=== PATIENT | male | born 1950 | race Caucasian/White ===

== ENCOUNTER 2018-07-21 14:40 | Inpatient (IN) ==
--- NOTE | 2018-07-21 15:58 | Emergency Department Note ---
Disposition Clinical Impression: Focal neurological deficit, onset greater than 24 hours Disposition: Admitted As Inpatient Condition: Fair Time of Disposition: 18:36 General Adult HPI - General Chief complaint: ED Neuro Symptoms/Deficit Stated complaint: Neuro symptoms Time Seen by Provider: 07/21/18 14:46 - History of Present Illness HPI Narrative: Jonathan Kulkarni is a 67 yr old male presenting with neuro deficit. He has a past medical history of Beebe's esophagus, GAVE syndrome, CKD, GERD, diabetes mellitus with peripheral neuropathy, hypertension, hyperlipidemia, pancreatitis. The patient had an upper respiratory infection 14 days ago, and then 10 days ago he woke up with asymmetrical right sided facial weakness and drooping and sharp, shooting facial pain, right eye burning, periauricular pain, and right sided neck pain. He was seen at [facility] who did an MRI, blood work and he was diagnosed with Cabrera's palsy. He was treated with acyclovir, prednisone, and percocet, all of which he has completed. Since that time, the right sided sharp shooting pain has continued and is not alleviated by gabapentin that he takes for peripheral neuropathy. He also admits to mild dysphagia, headache, dysequilibrium and had one episode of right leg weakness with fall. He states that the leg weakness has somewhat resolved. He denies loss of consciousness, vision change, hearing change, change in taste, weakness besides right leg, change in speech, change in sensation, chest pain, shortness of breath, nausea, vomiting, fever, chills, abdominal pain, change in bowel or bladder habits or rash. Pain Scale: 8 - Related Data Home Medications Medication Instructions Recorded Confirmed RX: Albuterol Sulfate [Albuterol 1 puff IH QID 01/01/18 07/21/18 Inhaler] RX: Allopurinol [Zyloprim] 300 mg PO DAILY 01/01/18 07/21/18 RX: Gabapentin [Neurontin] 900 mg PO BID 01/01/18 07/21/18 RX: Insulin ASPART [Novolog 36 unit SQ TID 01/01/18 07/21/18 Flexpen] RX: Insulin Glargine [Lantus] 100 unit BID 01/01/18 07/21/18 RX: Lisinopril [Zestril] 20 mg PO DAILY 01/01/18 07/21/18 RX: Rosuvastatin Calcium [Crestor] 20 mg PO DAILY 01/01/18 07/21/18 RX: Sertraline [Zoloft] 200 mg PO DAILY 01/01/18 07/21/18 RX: Spironolactone [Aldactone] 12.5 mg PO DAILY 01/01/18 07/21/18 RX: Trazodone HCl 100 mg PO HS 01/01/18 07/21/18 Aspirin [Adult Aspirin] 81 mg PO DAILY 01/29/18 07/21/18 Metoprolol [Lopressor] 75 mg PO BID 01/29/18 07/21/18 Previous Rx's Medication Instructions Recorded RX: Pantoprazole Sodium [Protonix] 40 mg PO DAILY #15 tablet. 01/05/18 Allergies Allergy/AdvReac Type Severity Reaction Status Date / Time Penicillins Allergy Swelling Verified 01/29/18 11:40 of Lip/Tongue/Throat atorvastatin AdvReac Cough Verified 01/29/18 11:40 ibuprofen AdvReac Itching Verified 01/29/18 11:40 Constitutional: Reports: weakness. Denies: fever, chills Eyes: Reports: eye pain. Denies: vision change ENT ED: Reports: ear pain, dysphagia. Denies: hearing loss Cardiovascular: Denies: chest pain, palpitations, dyspnea on exertion, edema, syncope Respiratory: Denies: cough, dyspnea, wheezes Gastrointestinal: Denies: abdominal pain, nausea, vomiting, constipation Genitourinary: Denies: urgency, dysuria, frequency Musculoskeletal: Reports: neck pain. Denies: back pain, joint swelling, arthralgia Integumentary: Denies: rash, lesions Neurological: Reports: headache, weakness, paresthesias. Denies: numbness, abnormal gait, vertigo Psychiatric: Denies: anxiety, depression Endocrine: Denies: fatigue, heat or cold intolerance Hematological/Lymphatic: Denies: easy bleeding, easy bruising Allergic/Immunologic: Denies: facial swelling, urticaria Past Medical History - Past Medical History Medical history: Reports: COPD, diabetes, GERD, hyperlipidemia, hypertension, other (Beebe's esophagus, GAVE syndrome, pancreatitis) Surgical history: Reports: cholecystectomy, other Psychiatric history: Reports: no psych history - Social History Smoking Status: Former smoker Smokeless Tobacco Status: No Alcohol use: Reports: none, heavy Drug use: Reports: none Physical Exam Gen.: Vitals noted. No acute distress. AAOx3, resting comfortably in bed. HEENT: PERRL/EOMI, oropharynx clear, assymetrical soft palatte, lower on right side, Normocephalic, atraumatic, MMM Neck: Supple. No adenopathy. No thyroid nodules. Trachea midline. Tenderness to touch over right lateral neck Cardiac: RRR, no murmur, +S1/S2, No BLE edema Pulmonary: CTA bilaterally, no wheezes, rales or rhonchi, equal chest expansion, unlabored breathing Abdomen: soft, nontender, BS noted, no guarding, no palpable HSM Back: Nontender throughout. Skin: warm and dry, no visible lesions. MSK: ROM intact, no joint swelling noted, non tender calf or clubbing, dupuytren's contracture of left 5th finger Neuro: A&Ox3, moves all extremities, PERRLA/EOMI, horizontal gaze intact, vision intact, right eyebrow weakness, right eye drooping, right mouth drooping. Sensation over the face is equal, however light touch causes pain over right cheek as well as periauricular region, mastoid region, and down the right side of neck. Uvula is midline, however right soft palatte is lower than left side. Upper and lower extremity motor function is 5/5 and equal bilaterally. Sensation on left arm is decreased from right arm. Sensation of lower extremi ties is equal. DTR intact and symmetrical. No pronator drift. Finger to nose and heel to rossi intact. No extinction or neglect. Normal gait, able to toe walk and heel walk. NIHSS stroke score of 4. - General General appearance: alert, in no apparent distress Course Course Narrative: Patient was seen and examined at bedside. History of present illness was elucidated, patient's main concern is neuropathic pain over face around ear and shooting down neck. While the patient does have typical cabrera's palsy presen tation of right eyebrow weakness, right eye drooping and right-sided mouth drooping with neuropathic pain on right side of face, around right ear and on right side of neck, there are several concerning findings in the history and on exam. Of concern is the history of disequilibrium, right-sided leg weakness 2 days ago resulting in fall, difficulty swallowing and soft palate asymmetry. NIHSS stroke score of 4. This could be a variant of cabrera's palsy but there is concern for subacute stroke. We will do a CBC, BMP, EKG, chest x-ray to assess for possible aspiration, and noncontrast head CT for further assessment. Patient is hypertensive, however due to concern for subacute stroke we will a wait imaging. He will be given 1 dose of Percocet to help alleviate his neuropathic pain. 5:31 Patient states that neuropathic pain of face, around here, and down neck is somewhat improved after Percocet CT head/brain without contrast revealed no acute intracranial abnormality, diffuse atrophic changes with findings suggesting chronic microvascular ischemia present. Chest x-ray revealed no acute cardiopulmonary process. EKG is normal sinus rhythm, borderline left axis, normal intervals, no ST segment elevation or depression, nonspecific T-wave abnormalities present. Labs significant for thrombocytopenia, platelets 95. Review of chart shows one episode of thrombocytopenia in 12/2017. Troponins WNL. Cr 1.43, BUN 23 and GFR 49, review of previous labs suggests CKD stage 3. Neurology has been consulted, patient will need MRI for further assess for subacute stroke. Patient will be admitted to hospitalist service. Vital Signs Temperature 97.4 F L 07/21/18 14:42 Pulse Rate 85 07/21/18 14:42 Respiratory Rate 16 07/21/18 14:42 Blood Pressure 196/90 07/21/18 14:42 O2 Sat by Pulse Oximetry 97 07/21/18 14:42 Temperature 97.4 F L 07/21/18 14:52 Pulse Rate 85 07/21/18 14:52 Respiratory Rate 16 07/21/18 14:52 Blood Pressure 196/90 07/21/18 14:52 O2 Sat by Pulse Oximetry 97 07/21/18 14:52 Oxygen Delivery Oxygen Delivery Room Air Medical Decision Making - Medical Records Medical records reviewed: Yes I reviewed the patient's medical records. - Lab Data Lab results reviewed: Yes I reviewed the patient's lab results. Result diagrams: 07/22/18 04:47 07/22/18 04:47 Lab Results 07/21/18 07/21/18 Range/Units 16:37 17:22 WBC 4.4 (4.3-11.1) K/mcL RBC 4.63 (4.19-5.50) M/mcL Hgb 13.0 (12.9-16.9) g/dL Hct 41.5 (37.5-50.1) % MCV 89.6 (83.0-100.0) fL MCH 28.1 (28.0-33.3) pg MCHC 31.3 L (31.6-35.5) g/dL RDW 19.3 H (11.5-14.5) % Plt Count 95 L (140-400) K/mcL MPV TNP Immature Gran % 0.2 (0-4) % Seg Neutrophils % 66.4 % Lymphocytes % 25.1 % Monocytes % 5.5 % Eosinophils % 2.1 % Basophils % 0.7 % Neutrophils # 2.9 (1.6-8.9) K/mcL Lymphocytes # 1.1 (0.6-4.6) K/mcL Monocytes # 0.2 (0.0-1.3) K/mcL Eosinophils # 0.1 (0.0-0.6) K/mcL Basophils # 0.0 (0.0-0.2) K/mcL Immature Plt Fraction 6.4 H (1.1-6.1) % Sodium 139 (136-145) mEq/L Potassium 4.5 (3.5-5.1) mEq/L Chloride 103 (98-107) mEq/L Carbon Dioxide 31 H (23-29) mEq/L BUN 23 (8-23) mg/dL Creatinine 1.43 H (0.70-1.30) mg/dL Est GFR ( Amer) 60 (> 60) Est GFR (Non-Af Amer) 49 L (> 60) BUN/Creatinine Ratio 16 (6-26) Glucose 167 H (70-105) mg/dL Calculated Osmolality 295 (280-300) Calcium 9.8 (8.6-10.3) mg/dL Troponin I < 0.03 (< 0.04) ng/mL - Radiology Data Radiology results reviewed: Yes I reviewed the patient's radiology results. Chest X-Ray 07/21/18 16:38 IMPRESSION: No acute cardiopulmonary process identified. D/ / Garett Raman MD / Garett Raman MD Interpreting Provider: Garett Raman MD Head CT 07/21/18 16:38 IMPRESSION: No acute intracranial abnormality. Diffuse atrophic changes with findings suggesting chronic microvascular ischemia D/ / Kiet Mosquera MD / Kiet Mosquera MD Interpreting Provider: Kiet Mosquera MD - EKG Data EKG #1 EKG results narrative: Normal sinus rhythm, heart rate 76 Borderline left axis deviation Normal intervals RRR 780 VA 164 QT [address] segment elevation or depression Nonspecific T-wave abnormalities in lateral leads No previous EKG to compare Attestation Statement - Attestation Attestation: Resident Attestation: I examined this patient and my medical decision making was reviewed with the Resident Physician. I agree with the documented findings, disposition and treatment plan as described except to the extent set forth below. We independently had [id number] contact with the patient. Patient presenting for evaluation of facial droop as well as associated pain. Patient was recently diagnosed with Cabrera's palsy at outside facility. Patient has been having increasing amounts of vertigo as well as right-sided weakness with the right leg giving out and feelings of imbalance. The patient on exam has pain to the right side of his face with associated facial droop including the forehead. The patient also has a a symmetric palate and complains of difficulty with swallowing. Given the patient's multiple neurologic complaints patient will undergo further evaluation for possible CVA.
[2018-07-21] MEDS ORDERED: *HR* OxyCODONE/APAP 5/325 TABLET PO ONE (16:54)
[2018-07-21 17:41] LABS: Lymphocytes # 1.1 K/mcL (0.6-4.6); Lymphocytes % 25.1 %; Mean Corpuscular Hemoglobin 28.1 pg (28.0-33.3); Neutrophils # 2.9 K/mcL (1.6-8.9); Red Cell Distribution Width 19.3 % (11.5-14.5); Segmented Neutrophils % 66.4 %
[2018-07-21 17:43] LABS: Basophils % 0.7 %; Eosinophils # 0.1 K/mcL (0.0-0.6); Eosinophils % 2.1 %; Hematocrit 41.5 % (37.5-50.1); Immature Granulocytes % 0.2 % (0-4); Immature Platelets 6.4 % (1.1-6.1); Mean Corpuscular HGB Conc 31.3 g/dL (31.6-35.5); Mean Corpuscular Volume 89.6 fL (83.0-100.0); Monocytes # 0.2 K/mcL (0.0-1.3); Monocytes % 5.5 %; Red Blood Count 4.63 M/mcL (4.19-5.50)
[2018-07-21 17:45] LABS: Platelet Count 95 K/mcL (140-400)
[2018-07-21 18:07] LABS: BUN/Creatinine Ratio 16 (6-26); Blood Urea Nitrogen 23 mg/dL (8-23); Calcium 9.8 mg/dL (8.6-10.3); Carbon Dioxide 31 mEq/L (23-29); Chloride 103 mEq/L (98-107); Glucose 167 mg/dL (70-105); Osmolality,Calculated 295 (280-300); Potassium 4.5 mEq/L (3.5-5.1); Sodium 139 mEq/L (136-145); eGFR For Non-African Americans 49 (> 60)
[2018-07-21 18:14] LABS: Troponin I < 0.03 ng/mL (< 0.04)
[2018-07-21] MEDS ORDERED: 0.9 % Sodium Chloride 1,000 ML IVC ONE (18:18)
--- NOTE | 2018-07-21 21:30 | Internal Med History&Physical ---
<Sergo Estrada W - Last Filed: 07/22/18 00:04> Date of Encounter: 07/22/18 Time of Encounter: 21:24 Internal Medicine - H&P: HPI Chief complaint: R sided facial pain Admitted From: Emergency Dept Plans for Post Hospital Care: Home History of present illness: Mr. Kulkarni is a 67 year old male presents with Cabrera's palsy hand associated right- sided facial pain. Patient has a past medical history of Beebe's esophagus, gave syndrome, CDK, GERD, diabetes mellitus with peripheral neuropathy, hypertension, hyperlipidemia, pancreatitis. Patient states that 14 days ago he had a "nasty" chest cold. Approximately 10 days ago patient noted some right- sided facial drooping and weakness. Patient states he woke up and one was unable to lift his right lip and completely elevate his right eye, or completely close his right eye on its own. States when he would breath deeply he felt like his nostril would drop and he was unable to hold up to take breath. 10 days ago patient went into [facility] where he was diagnosed with Cabrera's palsy. An MRI was done at that time and according to patient report he states that there was no abnormalities and no signs of a stroke. He was treated with acyclovir prednisone Percocet. He states that these did not help him. He is no longer taking any of these except for the Percocet. Patient states that the facial drooping has remained the same over the 10 days. Patient states he has had some slight lip swelling over the past few days. Patient has also had right leg weakness. He states this past Saturday his leg gave out and he fell. He did not his head. was able to get up on his own. Patient states his right leg still feels slightly weak, however, does not given out on him anymore. Patient came into the ED today because he had a biggest complaint of shooting right- sided facial pain. Takes place below his ear near his jaw on the right side. They can shoot up to the back of his neck or to his forehead. Patient has some relief if he presses on the area. Minor relief with aspirin or Percocet. Gabapentin does not help. Nothing makes it worse. Along with these shooting pains that are intense he does have a mild dull headache on the right side of his head. Patient states he has difficulty swallowing. Is able to tolerate solids and liquids. Patient admits to diarrhea for the past 3 days. Patient also states he has had abdominal pain however this is chronic for him. Patient denies any chest pain, shortness of breath that is above his baseline with a history of COPD, denies any change in bladder habits, denies any decreased sensation, denies confusion, denies rash, denies vision change. Past Med Surg Social Fam HX - Past Medical History Medical history: COPD, diabetes, GERD, hyperlipidemia, hypertension, other (Beebe's esophagus, GAVE syndrome, pancreatitis) Additional medical history: barretts esophagus. anemia. erectile dysfunction. gastric antral vascular ectasia (GAVE syndrome) Psychiatric history: no psych history - Past Surgical History Surgical History: cholecystectomy, other Additional surgical history: right hand operation. pancreatic stent - Social History Smoking Status: Former smoker Smokeless Tobacco Status: No Alcohol use: none, heavy Drug use: none - Family History Mother Living Status: Hx Family Cardiac Disorders: Yes (CAD) Brother Living Status: Hx Family Respiratory Disorders: Yes (condition unknown to brother) Hx Family GI Disorders: Yes (GI bleed) Father Hx Family Cardiac Disorders: Yes (Patient believes father had heart failure) Internal Medicine - H&P: Meds Albuterol Sulfate [Albuterol Inhaler] 1 puff IH QID 01/01/18 [History] Allopurinol [Zyloprim] 300 mg PO DAILY 01/01/18 [History] Gabapentin [Neurontin] 900 mg PO BID 01/01/18 [History] Insulin ASPART [Novolog Flexpen] 36 unit SQ TID 01/01/18 [History] Insulin Glargine [Lantus] 100 unit BID 01/01/18 [History] Lisinopril [Zestril] 20 mg PO DAILY 01/01/18 [History] Rosuvastatin Calcium [Crestor] 20 mg PO DAILY 01/01/18 [History] Sertraline [Zoloft] 200 mg PO DAILY 01/01/18 [History] Spironolactone [Aldactone] 12.5 mg PO DAILY 01/01/18 [History] Trazodone HCl 100 mg PO HS 01/01/18 [History] Pantoprazole Sodium [Protonix] 40 mg PO DAILY #15 tablet. 01/05/18 [Rx] Aspirin [Adult Aspirin] 81 mg PO DAILY 01/29/18 [History] Metoprolol [Lopressor] 75 mg PO BID 01/29/18 [History] Allergy/AdvReac Type Severity Reaction Status Date / Time Penicillins Allergy Swelling Verified 01/29/18 11:40 of Lip/Tongue/Throat atorvastatin AdvReac Cough Verified 01/29/18 11:40 ibuprofen AdvReac Itching Verified 01/29/18 11:40 All Systems PM: A 10-system review of systems was performed and is negative for pertinent findings except as documented above in the HPI. - Constitutional Constitutional: as per HPI - EENT Eyes: as per HPI Ears: as per HPI - Cardiovascular Cardiovascular ROS IM: as per HPI - Respiratory Respiratory: as per HPI - Gastrointestinal Gastrointestinal: as per HPI - Genitourinary Genitourinary ROS male: as per HPI - Musculoskeletal Musculoskeletal ROS IM: as per HPI - Integumentary Integumentary IM: as per HPI - Neurological Neurological ROS: as per HPI - Psychiatric Psychiatric: no confusion - Constitutional Vitals: Temp Pulse Resp BP Pulse Ox 97.4 F L 85 20 169/82 97 07/21/18 14:52 07/21/18 14:52 07/21/18 21:01 07/21/18 21:01 07/21/18 14:52 General appearance: Present: A&O X 3, pleasant Exam: as above - Head Head exam: Present: atraumatic, normocephalic Additional comments: Tenderness to palpation plan mandibular angle on the right side - Eye Eye exam: Present: EOMI. Absent: nystagmus, periorbital swelling, periorbital tenderness Additional comments: Ptosis of the right eye. Difficulty closing right eye - ENT ENT exam: Present: mucous membranes moist Additional comments: Right-sided soft, lower than the left side - Respiratory Respiratory exam: Present: CTAB. Absent: prolonged expiratory phase, rales, respiratory distress, rhonchi, wheezes - Cardiovascular Cardiovascular exam: Present: RRR, +S1, +S2. Absent: bradycardia, diastolic murmur, irregular rhythm, +S3, +S4, systolic murmur - GI/Abdominal GI/Abdominal exam: Present: normal bowel sounds, soft, tenderness (Diffuse). Absent: bruit, distended, firm, guarding - Expanded Neurological Exam Patient oriented to: Present: person, place, time Speech: Present: fluid speech Cranial Nerves: EOM's intact PM: Normal, nystagmus PM: Normal, tongue deviation PM: Normal Cerebellar function: finger to nose: Normal, Romberg: Normal Upper motor neuron: pronator drift: Normal, sensory extinction: Normal Sensory exam: lower extremity light touch: Normal, upper extremity light touch: Normal Neuro motor strength exam: LUE: 5, RUE: 5, LLE: 5, RLE: 5 DTR: bicep (L): 2+, bicep (R): 2+, patellar (L): 2+, patellar (R): 2+, tricep (L): 2+, tricep (R): 2+ Coma Scale Eye Opening: Spontaneous Coma Scale Motor Response: Obeys Commands Coma Scale Verbal Response: Oriented Coma Scale Total: 15 - Psychiatric Psychiatric exam: Present: normal affect, normal mood - Skin Skin exam: Present: dry, intact, warm Internal Med - H&P Results - Labs CBC & Chem 7: 07/21/18 16:37 07/21/18 17:22 Labs: Short CBC 07/21/18 Range/Units 16:37 WBC 4.4 (4.3-11.1) K/mcL Hgb 13.0 (12.9-16.9) g/dL Hct 41.5 (37.5-50.1) % Plt Count 95 L (140-400) K/mcL Neutrophils # 2.9 (1.6-8.9) K/mcL BMP 07/21/18 17:22 Sodium 139 Potassium 4.5 Chloride 103 Carbon Dioxide 31 H BUN 23 Creatinine 1.43 H Glucose 167 H Calcium 9.8 Cardiac Enzymes 07/21/18 Range/Units 17:22 Troponin I < 0.03 (< 0.04) ng/mL - Impressions ITS Impressions Chest X-Ray 07/21/18 16:38 IMPRESSION: No acute cardiopulmonary process identified. D/ / Garett Raman MD / Garett Raman MD Interpreting Provider: Garett Raman MD Head CT 07/21/18 16:38 IMPRESSION: No acute intracranial abnormality. Diffuse atrophic changes with findings suggesting chronic microvascular ischemia D/ / Kiet Mosquera MD / Kiet Mosquera MD Interpreting Provider: Kiet Mosquera MD - Assessment and plan (1) Facial paralysis/Elgin palsy Current Visit: Yes Status: Acute Assessment and plan: Likely from respiratory illness 14 days ago. Significant right-sided facial drooping and weakness for 10 days Diagnosed by the facility 10 days ago. At the time MRI was done per patient there is no acute abnormalities Patient has completed a course of acyclovir, prednisone, and Percocet has not s een any resolutions of his symptoms Concern patient did have some right-sided leg weakness. On Saturday did cause him to fall. Concern for CVA/TIA. NIHSS score of 4 Patient admits to some mild dysphasia. However he can tolerate solids and liquids. Plan: Neuro consultation, Appreciate recommendations PT/OT consultation, appreciate recs Consent consider speech therapy consult if patient has continued dysphagia MRI, carotid ultrasound, echo, lipids, A1c, CBC, BMP Pain control (2) Lower extremity weakness Current Visit: Yes Status: Acute Assessment and plan: as above Qualifiers: Laterality: right Qualified Code(s): R29.898 - Other symptoms and signs involving the musculoskeletal system (3) Facial neuralgia Current Visit: Yes Status: Acute Assessment and plan: Patient having shooting facial pain from the right side Patient has tried Percocet and aspirin for pain control. These might help but only mildly Pain control Plan as above (4) [id number] kidney injury Current Visit: Yes Status: Acute Assessment and plan: History of chronic kidney disease Creatinine 1.43 GFR 49 Unknown etiology at this time 1 L bolus given in ED. At this time is adequate. Follow-up labs tomorrow morning. Creatinine is not improving consider more fluids. Encourage oral hydration Avoid nephrotoxins Qualifiers: Acute renal failure type: unspecified Chronic kidney disease stage: unspecified stage Qualified Code(s): N17.9 - Acute kidney failure, unspecified; N18.9 - Chronic kidney disease, unspecified (5) Diabetes mellitus, insulin dependent (IDDM), controlled Current Visit: No Status: Acute Assessment and plan: Chronic with neuropathy Sliding scale insulin Diabetic diet continue home gabapentin (6) COPD (chronic obstructive pulmonary disease) Current Visit: Yes Status: Acute Assessment and plan: chronic Patient is not above baseline shortness of breath. Patient is not actively wheezing or coughing Albuterol prn Qualifiers: COPD type: unspecified COPD Qualified Code(s): J44.9 - Chronic obstructive pulmonary disease, unspecified (7) Hypertension Current Visit: No Status: Acute Assessment and plan: Chronic Continue home medications Qualifiers: Hypertension type: essential hypertension Qualified Code(s): I10 - Essential (primary) hypertension (8) Thrombocytopenia Current Visit: Yes Status: Acute Assessment and plan: Platelets 95 Patient has had several low levels in the past etiology unknown at this time Heme/onc consult if this worsens (9) GAVE (gastric antral vascular ectasia) Current Visit: No Status: Chronic Assessment and plan: History of GAVE Consider GI consult there are any signs of gastrointestinal bleeding (10) DVT prophylaxis Current Visit: Yes Status: Acute Assessment and plan: Heparin subcutaneous - Time Spent With Patient Total time spent is greater than 50% in coordination of care (as documented) at patient's floor/unit and/or counseling patient: <Ernesto Yanez - Last Filed: 07/22/18 06:51> Date of Encounter: 07/22/18 Internal Medicine - H&P: HPI History of present illness: Mr. Kulkarni is a 67 year old male All Systems PM: A 10-system review of systems was performed and is negative for pertinent findings except as documented above in the HPI. - Constitutional Vitals: Temp Pulse Resp BP Pulse Ox 98.5 F 85 17 177/93 94 07/22/18 03:23 07/22/18 03:23 07/22/18 03:23 07/22/18 03:23 07/22/18 03:23 Internal Med - H&P Results - Labs CBC & Chem 7: 07/22/18 04:47 07/22/18 04:47 Labs: Short CBC 07/21/18 07/22/18 Range/Units 16:37 04:47 WBC 4.4 5.7 (4.3-11.1) K/mcL Hgb 13.0 12.6 L (12.9-16.9) g/dL Hct 41.5 40.3 (37.5-50.1) % Plt Count 95 L 93 L (140-400) K/mcL Neutrophils # 2.9 3.7 (1.6-8.9) K/mcL BMP 07/21/18 07/22/18 17:22 04:47 Sodium 139 139 Potassium 4.5 3.9 Chloride 103 104 Carbon Dioxide 31 H 25 BUN 23 19 Creatinine 1.43 H 1.24 Glucose 167 H 110 H Calcium 9.8 9.3 Cardiac Enzymes 07/21/18 Range/Units 17:22 Troponin I < 0.03 (< 0.04) ng/mL - Impressions ITS Impressions Chest X-Ray 07/21/18 16:38 IMPRESSION: No acute cardiopulmonary process identified. D/ / Garett Raman MD / Garett Raman MD Interpreting Provider: Garett Raman MD Head CT 07/21/18 16:38 IMPRESSION: No acute intracranial abnormality. Diffuse atrophic changes with findings suggesting chronic microvascular ischemia D/ / Kiet Mosquera MD / Kiet Mosquera MD Interpreting Provider: Kiet Mosquera MD - Time Spent With Patient Total time spent is greater than 50% in coordination of care (as documented) at patient's floor/unit and/or counseling patient: - Attending Attestation I saw and evaluated the patient. I reviewed the residents note, performed my own physical examination and agree with findings and plan as documented in the residents note. Patient seen and examined on 07/22/18. Patient still has right-sided facial pain. Percocet 10 has not helped with this. We will try Dilaudid, and can increase dose as patient tolerates it. Would appreciate neurology input, unclear if his facial pain is secondary to Cabrera's palsy or if there is some other etiology contributing to his neuralgia. Would like to get an ESR and CRP for potential giant cell arteritis diagnosis. No rash, do not suspect shingles or herpes simplex like disease. Patient still has significant right-sided facial droop particularly at the eyelid and coronary of the mouth. Right-sided weakness seems improved from what was reported. Would still like physical therapy and occupational therapy evaluation. Patient does not have difficulty swallowing therefore we will hold off on speech and swallow evaluation for now. We will continue to monitor and complete further imaging studies in the morning.
[2018-07-21] MEDS ORDERED: Naloxone 0.4 MG/ML INJ IVP PRN ×2 (23:38→23:55)
[2018-07-21] MEDS ORDERED: D5% in Water 1,000 ML IVC PRN (23:43)
[2018-07-21] MEDS ORDERED: *HR* Dextrose 50 % in Water (Syg) 50 ML SYRINGE IVP PRN (23:43)
[2018-07-21] MEDS ORDERED: Dextrose Gel 15 GM/37.5 ML TUBE PO PRN ×2 (23:43)
[2018-07-21] MEDS ORDERED: Acetaminophen 325 MG TABLET PO PRN (23:55)
[2018-07-21] MEDS ORDERED: *HR* OxyCODONE Immed Rel 5 MG TABLET PO PRN (23:55)
[2018-07-22] MEDS: Insulin LISPRO 300 UNITS/3 ML VIAL SQ SCH ×5 (00:32→21:24)
[2018-07-22] MEDS: *HR* Heparin 5,000 UNIT/ML VIAL SQ SCH ×3 (00:32→17:35)
[2018-07-22] MEDS: *HR* HYDROcodone/Acet 5/325 mg TABLET PO PRN ×3 (02:10→21:23)
[2018-07-22] MEDS: Gabapentin 300 MG CAPSULE PO SCH ×3 (02:11→21:23)
[2018-07-22] MEDS: traZODone 50 MG TABLET PO SCH ×2 (02:42→21:24)
[2018-07-22 05:52] LABS: Immature Granulocytes % 0.2 % (0-4); Monocytes % 6.4 %
[2018-07-22 05:54] LABS: Basophils % 0.4 %; Eosinophils # 0.1 K/mcL (0.0-0.6); Eosinophils % 1.9 %; Hematocrit 40.3 % (37.5-50.1); Hemoglobin 12.6 g/dL (12.9-16.9); Immature Platelets 5.1 % (1.1-6.1); Lymphocytes # 1.5 K/mcL (0.6-4.6); Lymphocytes % 26.5 %; Mean Corpuscular HGB Conc 31.3 g/dL (31.6-35.5); Mean Corpuscular Hemoglobin 27.8 pg (28.0-33.3); Mean Corpuscular Volume 88.8 fL (83.0-100.0); Monocytes # 0.4 K/mcL (0.0-1.3); Neutrophils # 3.7 K/mcL (1.6-8.9); Red Blood Count 4.54 M/mcL (4.19-5.50); Red Cell Distribution Width 18.9 % (11.5-14.5); Segmented Neutrophils % 64.6 %
[2018-07-22 06:03] LABS: Platelet Count 93 K/mcL (140-400)
[2018-07-22 06:09] LABS: BUN/Creatinine Ratio 15 (6-26); Blood Urea Nitrogen 19 mg/dL (8-23); Calcium 9.3 mg/dL (8.6-10.3); Carbon Dioxide 25 mEq/L (23-29); Chloride 104 mEq/L (98-107); Chol/HDL Ratio 4.8 (0-4.9); Cholesterol 115 mg/dL (< 200); Glucose 110 mg/dL (70-105); HDL Cholesterol 24 mg/dL (40-59); LDL Cholesterol,Calculated 22 mg/dL (0-99); Osmolality,Calculated 291 (280-300); Potassium 3.9 mEq/L (3.5-5.1); Sodium 139 mEq/L (136-145); Triglycerides 346 mg/dL (< 150); eGFR For Non-African Americans 58 (> 60)
[2018-07-22] MEDS: *HR* HYDROmorphone 2 MG TABLET PO PRN ×2 (06:13→10:21)
[2018-07-22 06:31] LABS: Platelet Estimate Slight Decrease (Normal)
[2018-07-22] MEDS ORDERED: Perflutren Lipid Microsphere 1.3 ML in 0.9 % Sodium Chloride 8.7 ML IVP ONE (08:15)
[2018-07-22 08:30] LABS: C-Reactive Protein 5 mg/L (Less than 10)
[2018-07-22 08:55] LABS: Estimated Average Glucose 171 mg/dl; Hemoglobin A1C 7.6 %
[2018-07-22] MEDS ORDERED: Gabapentin 300 MG CAPSULE PO SCH (09:00)
[2018-07-22] MEDS: Aspirin Enteric Coated 81 MG Tablet PO SCH (09:14)
[2018-07-22] MEDS: Spironolactone 25 MG TABLET PO SCH (09:14)
[2018-07-22] MEDS: Lisinopril 20 MG TABLET PO SCH (09:15)
--- NOTE | 2018-07-22 10:21 | Neurology - Consult Note ---
<Jonathan Bautista - Last Filed: 07/22/18 12:42> Date of Encounter: 07/22/18 Time of Encounter: 10:16 Assessment and Plan (1) Facial paralysis/[place] palsy Current Visit: Yes Status: Acute Diagnosed with Cabrera's palsy 10 days ago. He reports having a viral URI approximately 4 days ago which I suspect is the cause of Cabrera's palsy. Was treated at [facility] with prednisone, Percocet and acyclovir. He continues to have right-sided facial droop and is unable to close his right eye. He is now having right postauricular and temporal pain. In addition to this he is having right-sided leg weakness which caused a fall on Saturday. He is also diffusely hyperreflexic. Neurology has been consulted with concern for CVA/TIA. With acute onset of right leg weakness we will continue with CVA rule out. However, I have low suspicion that he has had an acute cerebrovascular event. Given his findings of diffuse hyperreflexia I would suspect that he may have a possible cervical myelopathy. Although, his presentation is somewhat atypical as he is not having any upper extremity weakness. Nonetheless I recommend the workup as follows below. PLAN: ASA daily Statin daily MRI of the brain, C-spine, T-spine pending TTE- Lipid panel revealing hyperlipidemia Adjust pain control measures as appropriate. Given leg weakness and history of falling believe that it would be beneficial for PT Given the mild dysphagia with Cabrera's palsy consider a speech therapy consult (2) Facial neuralgia Current Visit: Yes Status: Acute (3) Lower extremity weakness Current Visit: Yes Status: Acute Qualifiers: Laterality: right Qualified Code(s): R29.898 - Other symptoms and signs involving the musculoskeletal system History of Present Illness Chief complaint: Neuro deficits- dysphagia, dysequilibrium, asymmetrical soft palate, right HPI: Mr. Kulkarni is a 67 year old male with a PMH of prior tobacco abuse, DM, HLD, HTN, COPD, GERD. Neurologist in consult with concerns for right facial pain, disequilibrium, unable to close his right eye, Cabrera's palsy with right facial droop, dysphasia and new right lower extremity weakness. The patient reports that 10 days ago he was diagnosed with Cabrera's palsy at [facility]. He underwent an MRI at that time which did not reveal a stroke. He subsequently was treated with acyclovir, Percocet and prednisone and discharged home. He has finished his course of steroids and reports that the right facial droop has not gotten any better. The patient notes that instead he is having an increase in pain behind his right jaw and on his right restorationism. He also notes mild right lip swelling over the past few days. Additionally, he notes he is having some right leg weakness and reports that his right leg gave out on him while walking Saturday. He denies any dizziness but does note some lightheadedness with change in position and activity. Additionally, in regards to his right-sided facial pain he describes this as radiating from his jaw up to his restorationism and states that it is shooting and sharp in nature and rated 6/10. He does note that he had a recent upper respiratory infection prior to his onset of symptoms. Otherwise, he denies any visual changes, neck stiffness, unilateral paresthesias, hemiparesis or hemiplegia. He received a chest x-ray in the ED which did not show any acute pulmonary findings. Additionally, CT of the head was negative for acute intracranial abnormality. I reviewed his CBC and chemistry panel and find no obvious abnormalities which would account for his symptoms. Per my examination this morning he does continue to have right facial droop and is unable to fully close his right eye. Additionally, his postauricular and temporal tenderness to palpation. He has mild weakness both proximally and distally of his right leg but no obvious signs of cerebellar ataxia and is able to ambulate throughout the room without difficulty. His sensory exam is intact. However, he does have diffuse hyperreflexia in all 4 extremities. Given his presentation and exam findings I suggest further workup. Past Med Surg Social Fam HX - Past Medical History Medical history: COPD, diabetes, GERD, hyperlipidemia, hypertension, other (Beebe's esophagus, GAVE syndrome, pancreatitis) Additional medical history: barretts esophagus. anemia. erectile dysfunction. gastric antral vascular ectasia (GAVE syndrome) Psychiatric history: no psych history - Past Surgical History Surgical History: cholecystectomy, other Additional surgical history: right hand operation. pancreatic stent - Social History Smoking Status: Former smoker Smokeless Tobacco Status: No Alcohol use: none, heavy Drug use: none - Family History Mother Living Status: Hx Family Cardiac Disorders: Yes (CAD) Brother Living Status: Hx Family Respiratory Disorders: Yes (condition unknown to brother) Hx Family GI Disorders: Yes (GI bleed) Father Hx Family Cardiac Disorders: Yes (Patient believes father had heart failure) Medications and Allergies Albuterol Sulfate [Albuterol Inhaler] 1 puff IH QID 01/01/18 [History] Allopurinol [Zyloprim] 300 mg PO DAILY 01/01/18 [History] Gabapentin [Neurontin] 900 mg PO BID 01/01/18 [History] Insulin ASPART [Novolog Flexpen] 36 unit SQ TID 01/01/18 [History] Insulin Glargine [Lantus] 100 unit BID 01/01/18 [History] Lisinopril [Zestril] 20 mg PO DAILY 01/01/18 [History] Rosuvastatin Calcium [Crestor] 20 mg PO DAILY 01/01/18 [History] Sertraline [Zoloft] 200 mg PO DAILY 01/01/18 [History] Spironolactone [Aldactone] 12.5 mg PO DAILY 01/01/18 [History] Trazodone HCl 100 mg PO HS 01/01/18 [History] Pantoprazole Sodium [Protonix] 40 mg PO DAILY #15 tablet. 01/05/18 [Rx] Aspirin [Adult Aspirin] 81 mg PO DAILY 01/29/18 [History] Metoprolol [Lopressor] 75 mg PO BID 01/29/18 [History] Allergy/AdvReac Type Severity Reaction Status Date / Time Penicillins Allergy Swelling Verified 01/29/18 11:40 of Lip/Tongue/Throat atorvastatin AdvReac Cough Verified 01/29/18 11:40 ibuprofen AdvReac Itching Verified 01/29/18 11:40 All Systems: The remainder of the systems were reviewed and are negative Review of Systems: REVIEW OF SYSTEMS GENERAL: Negative for any nausea, vomiting, fevers, chills, or weight loss, fatigue. Positive right facial pain. NEUROLOGIC: Negative for any blurred vision, facial asymmetry, hemisensory defic its, vertigo, ataxia, speech or language dysfunction, balance changes coordination difficulties + Right facial droop, right leg weakness, dysphagia, lightheadedness, lagopthalmus, Rt eye ptosis, PSYCH: agitation/irritability, anxiety HEENT: Negative for any head trauma, neck trauma, neck stiffness, photophobia, phonophobia, tinnitus CARDIAC: Negative for any chest pain, dyspnea on exertion, HTN, VTE, peripheral edema. GENITOURINARY: Negative for any dysuria, hematuria, incontinence. ENDOCRINE: Thyroid trouble, heat/cold intolerance, excessive sweating, thirst, hunger MUSCULOSKELETAL: Joint pain, stiffness, + Loss of strength to right leg, + decreased activity tolerance due to right leg weakness INTEGUMENTARY: Negative for any rashes, eruptions, lesions Physical Examination - Vital Signs Vital Signs: Initial Vital Signs Temp Pulse Resp BP Pulse Ox 97.4 F L 85 16 196/90 97 07/21/18 14:42 07/21/18 14:42 07/21/18 14:42 07/21/18 14:42 07/21/18 14:42 - Exam Exam: Examination: General Examination: *CONSTITUTIONAL: Temperature 98.0 f, HR 89, RR 16 and 93% on room air, BP 172/82 *GENERAL APPEARANCE OF PATIENT appears healthy and well groomed, in mild distress due to right facial pain otherwise alert and oriented 3 *EYES: pupils equal, round, reactive to light and accommodation, conjunctiva clear without masses or ulcerations, fundi normal. *CARDIOVASCULAR RRR, S1, S2, no mumurs, rubs, or gallops, no peripheral edema Musculoskeletal: *GAIT AND STATION normal, with normal Romberg testing, no abnormalities, gait is smooth without any obvious instability or broad-based gait. *ASSESSMENT OF MUSCLE STRENGTH IN THE UPPER AND LOWER EXTREMITIES bilateral deltoid, bicep, tricep, senior technical support engineer strength, are 5/5. Left hip flexors ,anterior tibialis, dorsoflexion of the foot 5/5. Right hip flexors, anterior tibialis, dorsiflexion of the right foot 4/5. *MUSCLE TONE IN THE UPPER AND LOWER EXTREMITIES normal. No abnormal movements, fasciculations or atrophy identified. Neurological: *ORIENTATION to time and place *RECURRENT AND REMOTE MEMORY intact *ATTENTION AND CONCENTRATION are normal *LANGUAGE FUNCTION no significant aphasia or dysarthia was noted. *FUND OF KNOWLEDGE aware of current events, past history, vocabulary *MENTAL attention span and concentration normal. *CN II optic fundi were normal, no papilledema noted. *CN III,IV, PERRLA extraocular eye movements were full, no nystagmus. + lagopthalmus, right eye proptosis *CN V sensation intact, patient having postauricular and temporal pain with palpation *CN VII symmetrical facial movement of the right side with right facial droop *CN VIII shows no significant hearing loss on examination in the office. *CN IX,,X palate elevated asymmetrically with deviation to the left, normal gag reflex was noted. *CN XI normal strength in the sternocleidomastoid muscles, symmetrical shoulder shrugging. *CN XII tongue protruded in the midline, with normal strength and movement. *SENSORY EXAMINATION pinprick sensation intact, and light touch intact *REFLEXES: Hyperreflexic diffusely throughout bilateral upper and lower e xtremities, no pathological reflexes were noted. *CEREBELLAR TESTING normal finger to nose, heel/knee/rossi, and tandem walk. *PAIN LEVEL 6/10 Results - Laboratory Findings CBC and BMP: 07/22/18 04:47 07/22/18 04:47 Abnormal lab findings: Abnormal lab results Hgb 12.6 g/dL (12.9-16.9) L 07/22/18 04:47 MCH 27.8 pg (28.0-33.3) L 07/22/18 04:47 MCHC 31.3 g/dL (31.6-35.5) L 07/22/18 04:47 RDW 18.9 % (11.5-14.5) H 07/22/18 04:47 Plt Count 93 K/mcL (140-400) L 07/22/18 04:47 Platelet Estimate Slight Decrease (Normal) L 07/22/18 04:47 ESR 26 mm/hr (0-10) H 07/22/18 04:47 Est GFR (Non-Af Amer) 58 (> 60) L 07/22/18 04:47 Glucose 110 mg/dL (70-105) H 07/22/18 04:47 POC Glucose 143 mg/dL (70-99) H 07/21/18 22:08 Hemoglobin A1c 7.6 % (-5.6) H 07/22/18 04:47 Triglycerides 346 mg/dL (< 150) H 07/22/18 04:47 VLDL Cholesterol, Calc 69 mg/dL (< 31) H 07/22/18 04:47 HDL Cholesterol 24 mg/dL (40-59) L 07/22/18 04:47 - Diagnostic Findings Additional findings: I have personally reviewed the head and CT imaging and find no acute intracranial abnormality. There appears to be diffuse atrophic changes sugge sting chronic microvascular ischemia. I have personally reviewed chest x-ray and find no acute pulmonary process. Consult Discharge Plan - Plan Referrals: Flaquito Shaw [Partnered Physician] - 08/20/18 1:35 pm <Kiet Hirsch - Last Filed: 07/22/18 17:05> Date of Encounter: 07/22/18 Assessment and Plan (1) Facial paralysis/Raymond palsy Current Visit: Yes Status: Acute Patient was examined independently. I agree with the assessment and plan of the CMP as stated above. Agree with the diagnosis of Cabrera's palsy. Postauricular pain is not uncommon. I would like to obtain a Lyme titer. Otherwise I would like to give him a higher dose of Solu-Medrol perhaps this will decrease some of the pain and swelling. Unfortunately however only time will tell to what extent she would get recovery. I did explain that about therapeutic a full recovery of 30 partial recovery the third may not recover very much at all. If he still experiencing significant pain tomorrow we might can consider starting carb amazepine or Lyrica. Regarding the right leg pain and weakness of believe that this is mechanical as external rotation of the right hip that seem to reproduce the pain. Straight leg raising was negative. Otherwise we will reevaluate your request. (2) Facial neuralgia Current Visit: Yes Status: Acute (3) Lower extremity weakness Current Visit: Yes Status: Acute Qualifiers: Laterality: right Qualified Code(s): R29.898 - Other symptoms and signs involving the musculoskeletal system History of Present Illness HPI: Chart was reviewed, the patient was seen and examined independently. Case was discussed with the ALLERGY NURSE. I agree with his assessment as stated above in its entirety. Patient does report back pain as well as bilateral hip pain. He is also diabetic. All Systems: The remainder of the systems were reviewed and are negative Review of Systems: The balance of the systems review is negative. Physical Examination - Vital Signs Vital Signs: Initial Vital Signs Temp Pulse Resp BP Pulse Ox 97.4 F L 85 16 196/90 97 07/21/18 14:42 07/21/18 14:42 07/21/18 14:42 07/21/18 14:42 07/21/18 14:42 - Exam Exam: There is weakness of the muscles of facial expression on the right. Patient has full strength of the muscles of expression on the left. There is no hyperac usis. No herpetiform lesions in the external canal on the right. Otherwise I agree with the assessment as stated above in its entirety. Results - Laboratory Findings CBC and BMP: 07/22/18 04:47 07/22/18 04:47 Abnormal lab findings: Abnormal lab results Hgb 12.6 g/dL (12.9-16.9) L 07/22/18 04:47 MCH 27.8 pg (28.0-33.3) L 07/22/18 04:47 MCHC 31.3 g/dL (31.6-35.5) L 07/22/18 04:47 RDW 18.9 % (11.5-14.5) H 07/22/18 04:47 Plt Count 93 K/mcL (140-400) L 07/22/18 04:47 Platelet Estimate Slight Decrease (Normal) L 07/22/18 04:47 ESR 26 mm/hr (0-10) H 07/22/18 04:47 Est GFR (Non-Af Amer) 58 (> 60) L 07/22/18 04:47 Glucose 110 mg/dL (70-105) H 07/22/18 04:47 POC Glucose 217 mg/dL (70-99) H 07/22/18 11:41 Hemoglobin A1c 7.6 % (-5.6) H 07/22/18 04:47 Triglycerides 346 mg/dL (< 150) H 07/22/18 04:47 VLDL Cholesterol, Calc 69 mg/dL (< 31) H 07/22/18 04:47 HDL Cholesterol 24 mg/dL (40-59) L 07/22/18 04:47 Amylase 23 Units/L (29-103) L 07/22/18 09:33
--- NOTE | 2018-07-22 12:07 | Internal Med Progress Note ---
Hospitalist Progress Note - Encounter Date of Encounter: 07/22/18 Time of Encounter: 12:04 - Subjective Interval History: Pt seen and examined in the room, he reported right sided weakness, right facial pain, right neck pain as well. He finished the course of acyclovir and prednisone without improvement. He had no headache, seizure, or body numbness. No fever, chills, or night sweats, No weight loss or appetite changes. - Exam Vitals: Temp Pulse Resp BP Pulse Ox 98.1 F 80 16 178/85 95 07/22/18 11:39 07/22/18 11:39 07/22/18 11:39 07/22/18 11:39 07/22/18 11:39 Exam: PHYSICAL EXAMINATION: GENERAL APPEARANCE: The patient is alert, oriented and in no acute distress. HEENT: Head is normocephalic. The sinuses are nontender. Pupils are equal and reactive. The nares are patent. Oropharynx clear without lesions. NECK: Supple without lymphadenopathy. HEART: Regular rate and rhythm. LUNGS: No crackles or wheezes are heard. ABDOMEN: Soft, nontender, nondistended with good bowel sounds heard. Inguinal area is normal. EXTREMITIES: Without cyanosis, clubbing or edema. NEUROLOGICAL: right facial weakness and numbness noted. 4/5 muscle strength on the right side. DTR 2+ and equal on both sides. No Babinski sign. SKIN: Warm and dry without any rash. - Assessment and Plan (1) Facial paralysis/[place] palsy Current Visit: Yes Status: Acute Assessment and Plan: 67-year-old gentleman presented with right-sided facial weakness, numbness, right neck pain, and a right lower extremity weakness. He has been treated at outside hospital as [place] palsy with acyclovir and prednisone without relief of symptoms. Later, he developed right facial pain, right leg pain, and progressive right-sided weakness. MRI brain at outside hospital was reportedly normal. On physical exam, patient does have profound right-sided peripheral facial palsy, right-sided facial numbness, swelling parotid gland and the possible lymph adenopathy on the right neck. His muscle strength on the right side is slightly weaker than the left side, DTR is brisk, equal bilaterally. Babinski was negative. - Mumps was suspected, however, and amylase level was low. Pending mumps IgG and IgM. - Patient reported been treated with acyclovir and prednisone, [place] Campos syndrome was less likely. Pending HSV IgM and IgG. - In combination with right facial pain, polyradiculopathy was suspected. Right sided weakness with brisk DTR, spinal myelopathy was suspected. Pending MRI brain, cervical and thoracic spine. - Neuro following , appreciated help. (2) Facial neuralgia Current Visit: Yes Status: Acute Assessment and Plan: Facial pain is within trigeminal dermatome. (3) Right sided weakness Current Visit: Yes Status: Acute Assessment and Plan: MRI cervical spine showed both radiculopathy and myelopathy. Neuro following, appreciate help. (4) Beebe's esophagus Current Visit: No Status: Chronic Assessment and Plan: monitor, continue PPI. (5) GAVE (gastric antral vascular ectasia) Current Visit: No Status: Chronic Assessment and Plan: Monitoring, continue PPI. (6) Hypertension Current Visit: No Status: Chronic Assessment and Plan: BP slightly elevated, will adjust meds. (7) CKD (chronic kidney disease) Current Visit: No Status: Acute Assessment and Plan: stable. (8) DVT prophylaxis Current Visit: Yes Status: Acute Assessment and Plan: Heparin sq. - Time Spent with Patient Total time spent is greater than 50% in coordination of care (as documented) at patient's floor/unit and/or counseling patient: Greater than 35 minutes Plan of Care Discussed with: patient Internal Medicine: Result - Labs CBC & Chem 7: 07/22/18 04:47 07/22/18 04:47 Labs: Short CBC 07/21/18 07/22/18 Range/Units 16:37 04:47 WBC 4.4 5.7 (4.3-11.1) K/mcL Hgb 13.0 12.6 L (12.9-16.9) g/dL Hct 41.5 40.3 (37.5-50.1) % Plt Count 95 L 93 L (140-400) K/mcL Neutrophils # 2.9 3.7 (1.6-8.9) K/mcL BMP 07/21/18 07/22/18 17:22 04:47 Sodium 139 139 Potassium 4.5 3.9 Chloride 103 104 Carbon Dioxide 31 H 25 BUN 23 19 Creatinine 1.43 H 1.24 Glucose 167 H 110 H Calcium 9.8 9.3 Cardiac Enzymes 07/21/18 Range/Units 17:22 Troponin I < 0.03 (< 0.04) ng/mL - Impressions Impressions Chest X-Ray 07/21/18 16:38 IMPRESSION: No acute cardiopulmonary process identified. D/ / Garett Raman MD / Garett Raman MD Interpreting Provider: Garett Raman MD Head CT 07/21/18 16:38 IMPRESSION: No acute intracranial abnormality. Diffuse atrophic changes with findings suggesting chronic microvascular ischemia D/ / Kiet Mosquera MD / Kiet Mosquera MD Interpreting Provider: Kiet Mosquera MD Echocardiogram 07/22/18 07:00 Impressions: LVEF 60-65%. Mild left ventricular diastolic dysfunction. Normal right ventricular structure and function. No evidence of PFO with agitated saline contrast. Unable to estimate RVSP due to lack of TR jet. No significant valvular dysfunction. Left Ventricular Wall Motion: Rest Echo Findings All wall segments showed normal motion. Findings: Study Quality * Technically adequate exam. ECG Findings * Normal sinus rhythm. Left Ventricle * Mild left ventricular diastolic dysfunction. * LVEF 60-65%. * Mildly dilated left ventricle. Right Ventricle * Normal right ventricular structure and function. Left Atrium * Normal left atrial size. Right Atrium * Normal right atrial size. Interatrial Septum * No evidence of PFO with agitated saline contrast. Aortic Valve * Aortic valve not well visualized. * No aortic regurgitation. * No aortic stenosis. Mitral Valve * Mitral valve not well visualized. * Mildly thickened mitral valve leaflets. * No mitral regurgitation. * No mitral stenosis. Tricuspid Valve * Normal tricuspid valve structure. * Trace tricuspid regurgitation. * No tricuspid stenosis. * Unable to estimate RVSP due to lack of TR jet. Pulmonic Valve * Pulmonic valve not well visualized. Aorta * Normally sized aortic root. Pericardium * The pericardium appears normal. IVC * The IVC is dilated. Pulmonary Artery * Normal visualized portions of the main pulmonary artery. Consult Discharge Plan - Plan Referrals: Flaquito Shaw [Partnered Physician] - 08/20/18 1:35 pm (4) Beebe's esophagus Qualifiers: Beebe's esophagus type: with dysplasia of unspecified degree Qualified Code(s): K22.719 - Beebe's esophagus with dysplasia, unspecified; K22.71 - Beebe's esophagus with dysplasia (6) Hypertension Qualifiers: Hypertension type: essential hypertension Qualified Code(s): I10 - Essential (primary) hypertension (7) CKD (chronic kidney disease) Qualifiers: Chronic kidney disease stage: stage 2 (mild) Qualified Code(s): N18.2 - Ch ronic kidney disease, stage 2 (mild)
[2018-07-22] MEDS ORDERED: methylPREDNISolone 125 MG/2 ML VIAL IVP ONE (16:54)
--- NOTE | 2018-07-22 18:45 | Electrocardiograph Report ---
[address] [address] Test Date: 2018-07-21 Pat Name: Jonathan Kulkarni Department: [id number] Room: 3B Gender: M [employer]elry [employer] Maker: : 1950 Requested By: Kadie Palumbo Order Number: [id number] Reading MD: aKdie Del Valle Measurements Intervals [place] Rate: 76 P: 71 MA: 164 QRS: -21 QRSD: 102 T: 92 QT: 408 QTc: 459 Interpretive Statements Sinus rhythm Borderline left axis deviation Nonspecific T abnormalities, lateral leads Electronically Signed On 07-22-2018 18:43:54 EST by Kadie Del Valle
[2018-07-22] MEDS: Metoprolol 100 MG TABLET PO SCH (21:23)
[2018-07-22] MEDS ORDERED: Insulin DETEMIR 100 UNIT/ML X5UNITS SQ ONE (23:06)
[2018-07-22] MEDS ORDERED: *HR* OxyCODONE Immed Rel 5 MG TABLET PO ONE (23:07)
[2018-07-23] MEDS: *HR* HYDROcodone/Acet 5/325 mg TABLET PO PRN ×3 (05:25→21:10)
[2018-07-23] MEDS: *HR* Heparin 5,000 UNIT/ML VIAL SQ SCH ×2 (07:38→17:01)
[2018-07-23] MEDS: Aspirin Enteric Coated 81 MG Tablet PO SCH (07:45)
[2018-07-23] MEDS: Insulin LISPRO 300 UNITS/3 ML VIAL SQ SCH ×5 (07:45→17:08)
[2018-07-23] MEDS: Metoprolol 100 MG TABLET PO SCH ×2 (07:45→21:11)
[2018-07-23] MEDS: Lisinopril 20 MG TABLET PO SCH (07:45)
[2018-07-23] MEDS: Gabapentin 300 MG CAPSULE PO SCH ×2 (07:45→21:10)
[2018-07-23] MEDS: Spironolactone 25 MG TABLET PO SCH (07:46)
[2018-07-23 08:19] LABS: Immature Granulocytes % 0.3 % (0-4); Lymphocytes % 9.1 %; Mean Corpuscular HGB Conc 31.1 g/dL (31.6-35.5)
[2018-07-23 08:21] LABS: Basophils % 0.1 %; Hematocrit 41.1 % (37.5-50.1); Hemoglobin 12.8 g/dL (12.9-16.9); Immature Platelets 7.2 % (1.1-6.1); Lymphocytes # 0.6 K/mcL (0.6-4.6); Mean Corpuscular Hemoglobin 28.1 pg (28.0-33.3); Mean Corpuscular Volume 90.3 fL (83.0-100.0); Monocytes # 0.2 K/mcL (0.0-1.3); Monocytes % 2.5 %; Neutrophils # 5.9 K/mcL (1.6-8.9); Red Blood Count 4.55 M/mcL (4.19-5.50); Red Cell Distribution Width 18.8 % (11.5-14.5)
[2018-07-23 08:31] LABS: BUN/Creatinine Ratio 20 (6-26); Blood Urea Nitrogen 26 mg/dL (8-23); Calcium 9.4 mg/dL (8.6-10.3); Carbon Dioxide 22 mEq/L (23-29); Chloride 98 mEq/L (98-107); Glucose 416 mg/dL (70-105); Osmolality,Calculated 292 (280-300); Potassium 5.7 mEq/L (3.5-5.1); Sodium 130 mEq/L (136-145); eGFR For Non-African Americans 56 (> 60)
--- NOTE | 2018-07-23 08:39 | Neurology Progress Note ---
Date of Encounter: 07/23/18 Time of Encounter: 08:36 Assessment and Plan (1) Facial paralysis/[place] palsy Current Visit: Yes Status: Acute The patient's right Cabrera's palsy remains stable. He does feel that the Solu- Medrol helped to diminish the pain. I would recommend discharging him on a prednisone taper over a week. Only time will tell to what extent he gets improvement. Understanding he already had acyclovir. I find no neurologic explanation for the right leg problem. I believe that his right leg pain and weakness is due to a mechanical problem involving the right hip. Otherwise he may discharge him at your discretion. I would consider Tegretol 200 mg once daily along with the prednisone taper. Pleasure to follow up with him after discharge. (2) Facial neuralgia Current Visit: Yes Status: Acute (3) Lower extremity weakness Current Visit: Yes Status: Acute Qualifiers: Laterality: right Qualified Code(s): R29.898 - Other symptoms and signs involving the musculoskeletal system Subjective Interval history: The chart was reviewed, the patient was seen and examined. Patient feels some pain relief today. However the facial weakness on the right still remains. He tolerated the Solu-Medrol bolus without difficulty. Other than the right facial weakness his neurologic examination is normal. No confusion is present. Objective - Constitutional Vitals: Temp Pulse Resp BP Pulse Ox 98.1 F 66 16 147/76 95 07/23/18 07:34 07/23/18 07:34 07/23/18 07:34 07/23/18 07:34 07/23/18 07:34 Exam: Examination: General Examination: *GENERAL APPEARANCE OF PATIENT appears healthy and well groomed, in mild distress due to right facial pain otherwise alert and oriented 3 *EYES: pupils equal, round, reactive to light and accommodation, conjunctiva clear without masses or ulcerations, fundi normal. *CARDIOVASCULAR RRR, S1, S2, no mumurs, rubs, or gallops, no peripheral edema Musculoskeletal: *GAIT AND STATION normal, with normal Romberg testing, no abnormalities, gait is smooth without any obvious instability or broad-based gait. 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 Left hip flexors ,anterior tibialis, dorsoflexion of the foot 5/5. Right hip flexors, anterior tibialis, dorsiflexion of the right foot 4/5. *MUSCLE TONE IN THE UPPER AND LOWER EXTREMITIES normal. No abnormal movements, fasciculations or atrophy identified. Neurological: *ORIENTATION to time and place *RECURRENT AND REMOTE MEMORY intact *ATTENTION AND CONCENTRATION are normal *LANGUAGE FUNCTION no significant aphasia or dysarthia was noted. *FUND OF KNOWLEDGE aware of current events, past history, vocabulary *MENTAL attention span and concentration normal. *CN II optic fundi were normal, no papilledema noted. *CN III,IV, PERRLA extraocular eye movements were full, no nystagmus. + lagopthalmus, right eye proptosis *CN V sensation intact, patient having postauricular and temporal pain with palpation *CN VII maintains lower motor neuron right facial palsy. Also has decreased lacrimation in the right eye. This is stable however. *CN VIII shows no significant hearing loss on examination in the office. *CN IX,,X palate elevated asymmetrically with deviation to the left, lalo l gag reflex was noted. *CN XI normal strength in the sternocleidomastoid muscles, symmetrical shoulder shrugging. *CN XII tongue protruded in the midline, with normal strength and movem ent. *SENSORY EXAMINATION pinprick sensation intact, and light touch intact *REFLEXES: Hyperreflexic diffusely throughout bilateral upper and lower extremities, no pathological reflexes were noted. *CEREBELLAR TESTING normal finger to nose, heel/knee/rossi, and tandem walk. *PAIN LEVEL 3/10 Results - Laboratory Findings CBC and BMP: 07/22/18 04:47 07/23/18 07:06 Abnormal lab findings: Abnormal lab results Hgb 12.6 g/dL (12.9-16.9) L 07/22/18 04:47 MCH 27.8 pg (28.0-33.3) L 07/22/18 04:47 MCHC 31.3 g/dL (31.6-35.5) L 07/22/18 04:47 RDW 18.9 % (11.5-14.5) H 07/22/18 04:47 Plt Count 93 K/mcL (140-400) L 07/22/18 04:47 Platelet Estimate Slight Decrease (Normal) L 07/22/18 04:47 ESR 26 mm/hr (0-10) H 07/22/18 04:47 Sodium 130 mEq/L (136-145) L 07/23/18 07:06 Potassium 5.7 mEq/L (3.5-5.1) H 07/23/18 07:06 Carbon Dioxide 22 mEq/L (23-29) L 07/23/18 07:06 BUN 26 mg/dL (8-23) H 07/23/18 07:06 Est GFR (Non-Af Amer) 56 (> 60) L 07/23/18 07:06 Glucose 416 mg/dL (70-105) H 07/23/18 07:06 POC Glucose 289 mg/dL (70-99) H 07/22/18 23:01 Hemoglobin A1c 7.6 % (-5.6) H 07/22/18 04:47 Triglycerides 346 mg/dL (< 150) H 07/22/18 04:47 VLDL Cholesterol, Calc 69 mg/dL (< 31) H 07/22/18 04:47 HDL Cholesterol 24 mg/dL (40-59) L 07/22/18 04:47 Amylase 23 Units/L (29-103) L 07/22/18 09:33 Consult Discharge Plan - Plan Referrals: Flaquito Shaw [Partnered Physician] - 08/20/18 1:35 pm
[2018-07-23] MEDS ORDERED: Insulin DETEMIR 100 UNIT/ML X5UNITS SQ SCH (09:00)
[2018-07-23 09:25] LABS: Platelet Count 85 K/mcL (140-400)
--- NOTE | 2018-07-23 11:35 | Internal Med Progress Note ---
Hospitalist Progress Note - Encounter Date of Encounter: 07/23/18 Time of Encounter: 11:35 - Subjective Interval History: Patient was seen and examined at bedside he states that his face does feel better and improved after receiving the steroids. I did discuss treatment plan with the patient who verbalized understanding - Exam Vitals: Temp Pulse Resp BP Pulse Ox 98.1 F 66 16 147/76 95 07/23/18 07:34 07/23/18 07:34 07/23/18 07:34 07/23/18 07:34 07/23/18 07:34 Exam: PHYSICAL EXAMINATION: GENERAL APPEARANCE: The patient is alert, oriented and in no acute distress. HEENT: Head is normocephalic. The sinuses are nontender. Pupils are equal and reactive. The nares are patent. Oropharynx clear without lesions. NECK: Supple without lymphadenopathy. HEART: Regular rate and rhythm. LUNGS: No crackles or wheezes are heard. ABDOMEN: Soft, nontender, nondistended with good bowel sounds heard. Inguinal area is normal. EXTREMITIES: Without cyanosis, clubbing or edema. NEUROLOGICAL: right facial weakness and numbness noted. 4/5 muscle strength on the right side. DTR 2+ and equal on both sides. No Babinski sign. SKIN: Warm and dry without any rash. - Assessment and Plan (1) Beebe's esophagus Current Visit: No Status: Chronic Assessment and Plan: monitor, continue PPI. (2) GAVE (gastric antral vascular ectasia) Current Visit: No Status: Chronic Assessment and Plan: Monitoring, continue PPI. (3) Hypertension Current Visit: No Status: Chronic Assessment and Plan: Continue current medications (4) CKD (chronic kidney disease) Current Visit: No Status: Acute Assessment and Plan: Appears to be stable at this time continue to monitor and avoid nephrotoxins (5) Facial paralysis/[place] palsy Current Visit: Yes Status: Acute Assessment and Plan: 67-year-old gentleman presented with right-sided facial weakness, numbness, right neck pain, and a right lower extremity weakness. He has been treated at outside hospital as [place] palsy with acyclovir and prednisone without relief of symptoms. Later, he developed right facial pain, right leg pain, and progressive right-sided weakness. MRI brain at outside hospital was reportedly normal. On physical exam, patient does have profound right-sided peripheral facial palsy, right-sided facial numbness, swelling parotid gland and the possible lymph adenopathy on the right neck. His muscle strength on the right side is slightly weaker than the left side, DTR is brisk, equal bilaterally. Babinski was negative. - Mumps was suspected, however, and amylase level was low. Pending mumps IgG and IgM. - Patient reported been treated with acyclovir and prednisone, Dave Campos syndrome was less likely. Pending HSV IgM and IgG. - In combination with right facial pain, polyradiculopathy was suspected. Right sided weakness with brisk DTR, spinal myelopathy was suspected. Pending MRI brain, cervical and thoracic spine. - Neuro following , appreciated help. 07/23 Neurology has been consulted and appreciate recommendations-recommending Tegretol 200 mg once a day along with prednisone taper over one week Initially mumps was suspected mumps IgG positive pending IgM MRI of brain 1. No acute infarct or acute intracranial process identified. 2. Mild chronic small vessel ischemic changes. C-spine MRI IMPRESSION: 1. Broad 3 mm right paracentral disc protrusion C5-6 resulting in severe right neural foraminal narrowing and mild spinal canal stenosis. 2. Mild spinal canal stenosis and [id number] bilateral neural foraminal narrowing at C6-7 secondary to a disc bulge and uncovertebral overgrowth. 3. Mild left neural foraminal narrowing at C4-5 secondary to a disc bulge lateralizing to the left. 4. Disc bulge and facet arthropathy at C3-4 without significant spinal canal stenosis or neural foraminal narrowing. MRI T-spine IMPRESSION: 1. No acute abnormality identified of the unenhanced thoracic spine. 2. Mild spinal canal stenosis at T10-T11 with minimal spinal canal stenosis at T3-T4, T7-T8 and T8-T9. 3. No evidence of spondylolisthesis. (6) Facial neuralgia Current Visit: Yes Status: Acute Assessment and Plan: Facial pain is within trigeminal dermatome. (7) DVT prophylaxis Current Visit: Yes Status: Acute Assessment and Plan: Heparin sq. (8) Right sided weakness Current Visit: Yes Status: Acute Assessment and Plan: MRI cervical spine showed both radiculopathy and myelopathy. Neuro following, appreciate help. (9) Hyperglycemia Current Visit: Yes Status: Acute Assessment and Plan: Secondary to steroid use blood glucose up to 400 today. Increase basal insulin to 100 units Levemir twice a day the patient takes at home as well as high sliding scale and prandial insulin 10 units Glucose is slowly trending down-anionic gap is 10 (10) Hyponatremia Current Visit: Yes Status: Acute Assessment and Plan: Secondary to hyperglycemia we will give IV fluids and monitor chemistry closely Lower glucose (11) Hyperkalemia Current Visit: Yes Status: Acute Assessment and Plan: Secondary to hyperglycemia we will give IV fluids correct glucose and monitor closely - Time Spent with Patient Total time spent is greater than 50% in coordination of care (as documented) at patient's floor/unit and/or counseling patient: Internal Medicine: Result - Labs CBC & Chem 7: 07/23/18 07:06 07/23/18 12:25 Labs: Short CBC 07/23/18 Range/Units 07:06 WBC 6.7 (4.3-11.1) K/mcL Hgb 12.8 L (12.9-16.9) g/dL Hct 41.1 (37.5-50.1) % Plt Count 85 L (140-400) K/mcL Neutrophils # 5.9 (1.6-8.9) K/mcL BMP 07/23/18 07:06 Sodium 130 L Potassium 5.7 H Chloride 98 Carbon Dioxide 22 L BUN 26 H Creatinine 1.27 Glucose 416 H Calcium 9.4 - Impressions Impressions Cervical Spine MRI 07/22/18 08:50 IMPRESSION: 1. Broad 3 mm right paracentral disc protrusion C5-6 resulting in severe right neural foraminal narrowing and mild spinal canal stenosis. 2. Mild spinal canal stenosis and oxia-la-btsdglwt bilateral neural foraminal narrowing at C6-7 secondary to a disc bulge and uncovertebral overgrowth. 3. Mild left neural foraminal narrowing at C4-5 secondary to a disc bulge lateralizing to the left. 4. Disc bulge and facet arthropathy at C3-4 without significant spinal canal stenosis or neural foraminal narrowing. D/ / 07/22/2018 14:03:54 Garett Raman MD / Carol Cerna Interpreting Provider: Garett Raman MD Thoracic Spine MRI 07/22/18 08:50 IMPRESSION: 1. No acute abnormality identified of the unenhanced thoracic spine. 2. Mild spinal canal stenosis at T10-T11 with minimal spinal canal stenosis at T3-T4, T7-T8 and T8-T9. 3. No evidence of spondylolisthesis. D/ / Wooyd Eden MD / Woody Eden MD Interpreting Provider: Woody Eden MD Brain MRI 07/22/18 08:59 IMPRESSION: 1. No acute infarct or acute intracranial process identified. 2. Mild chronic small vessel ischemic changes. D/ / Garett Raman MD / Garett Raman MD Interpreting Provider: Garett Raman MD Consult Discharge Plan - Plan Referrals: Flaquito Shaw [Partnered Physician] - 08/20/18 1:35 pm (1) Beebe's esophagus Qualifiers: Beebe's esophagus type: with dysplasia of unspecified degree Qualified Code(s): K22.719 - Beebe's esophagus with dysplasia, unspecified; K22.71 - Beebe's esophagus with dysplasia (3) Hypertension Qualifiers: Hypertension type: essential hypertension Qualified Code(s): I10 - Essential (primary) hypertension (4) CKD (chronic kidney disease) Qualifiers: Chronic kidney disease stage: stage 2 (mild) Qualified Code(s): N18.2 - Chronic kidney disease, stage 2 (mild)
[2018-07-23] MEDS ORDERED: Insulin LISPRO 300 UNITS/3 ML VIAL SQ SCH ×2 (12:00→18:21)
[2018-07-23] MEDS: 0.9 % Sodium Chloride 1,000 ML IVC SCH ×2 (12:32→23:30)
[2018-07-23 13:22] LABS: BUN/Creatinine Ratio 23 (6-26); Blood Urea Nitrogen 30 mg/dL (8-23); Calcium 9.6 mg/dL (8.6-10.3); Carbon Dioxide 25 mEq/L (23-29); Chloride 99 mEq/L (98-107); Glucose 451 mg/dL (70-105); Osmolality,Calculated 298 (280-300); Potassium 4.9 mEq/L (3.5-5.1); Sodium 131 mEq/L (136-145); eGFR For Non-African Americans 55 (> 60)
[2018-07-23] MEDS ORDERED: INSULIN ASPART 36 UNIT SQ SCH (15:00)
--- NOTE | 2018-07-23 16:56 | Electrocardiograph Report ---
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
[2018-07-23 20:32] LABS: BUN/Creatinine Ratio 23 (6-26); Blood Urea Nitrogen 30 mg/dL (8-23); Carbon Dioxide 25 mEq/L (23-29); Chloride 103 mEq/L (98-107); Glucose 253 mg/dL (70-105); Osmolality,Calculated 293 (280-300); Potassium 4.3 mEq/L (3.5-5.1); Sodium 134 mEq/L (136-145); eGFR For Non-African Americans 56 (> 60)
[2018-07-23] MEDS: predniSONE 20 MG TABLET PO SCH (21:10)
[2018-07-23] MEDS: carBAMazepine 200 MG TABLET PO SCH (21:10)
[2018-07-23] MEDS: traZODone 50 MG TABLET PO SCH (21:11)
[2018-07-23] MEDS: Insulin DETEMIR 100 UNIT/ML X5UNITS SQ SCH (21:11)
[2018-07-24] MEDS: *HR* HYDROcodone/Acet 5/325 mg TABLET PO PRN ×3 (06:00→19:19)
[2018-07-24 06:37] LABS: Herpes Simplex IgG (I&II COMB) >22.40 IV
[2018-07-24] MEDS: Insulin LISPRO 300 UNITS/3 ML VIAL SQ SCH ×4 (08:49→17:09)
[2018-07-24] MEDS: Insulin DETEMIR 100 UNIT/ML X5UNITS SQ SCH ×2 (08:54→21:45)
[2018-07-24] MEDS: Aspirin Enteric Coated 81 MG Tablet PO SCH (09:48)
[2018-07-24] MEDS: Metoprolol 100 MG TABLET PO SCH ×2 (09:48→21:44)
[2018-07-24] MEDS: Gabapentin 300 MG CAPSULE PO SCH ×2 (09:49→21:45)
[2018-07-24] MEDS: predniSONE 20 MG TABLET PO SCH (09:51)
[2018-07-24] MEDS: carBAMazepine 200 MG TABLET PO SCH (09:52)
[2018-07-24] MEDS: Lisinopril 20 MG TABLET PO SCH (09:52)
[2018-07-24] MEDS: 0.9 % Sodium Chloride 1,000 ML IVC SCH ×2 (10:12→17:09)
[2018-07-24 12:49] LABS: BUN/Creatinine Ratio 29 (6-26); Blood Urea Nitrogen 34 mg/dL (8-23); Calcium 9.1 mg/dL (8.6-10.3); Carbon Dioxide 22 mEq/L (23-29); Chloride 102 mEq/L (98-107); Glucose 382 mg/dL (70-105); Osmolality,Calculated 299 (280-300); Potassium 4.8 mEq/L (3.5-5.1); Sodium 133 mEq/L (136-145); eGFR For Non-African Americans > 60 (> 60)
--- NOTE | 2018-07-24 17:01 | Internal Med Progress Note ---
Hospitalist Progress Note - Encounter Date of Encounter: 07/24/18 Time of Encounter: 16:57 - Subjective Interval History: Patient was seen and examined at bedside he states that his face does feel better and improved after receiving the steroids. Patient does have some right- sided weakness I did discuss MRI report results with the patient and patient wi ll be evaluated by orthopedics. Also discussed results of lab work concerning mumps. Advised patient that he will need to have mumps antibody rechecked in approximately 10 days and will need to follow-up with primary care provider. We are also monitoring blood glucose which is improving. - Exam Vitals: Temp Pulse Resp BP Pulse Ox 97.5 F L 84 14 176/83 97 07/24/18 16:22 07/24/18 16:22 07/24/18 16:22 07/24/18 16:22 07/24/18 16:22 Exam: PHYSICAL EXAMINATION: GENERAL APPEARANCE: The patient is alert, oriented and in no acute distress. HEENT: Head is normocephalic. The sinuses are nontender. Pupils are equal and reactive. The nares are patent. Oropharynx clear without lesions. NECK: Supple without lymphadenopathy. HEART: Regular rate and rhythm. LUNGS: No crackles or wheezes are heard. ABDOMEN: Soft, nontender, nondistended with good bowel sounds heard. Inguinal area is normal. EXTREMITIES: Without cyanosis, clubbing or edema. NEUROLOGICAL: right facial weakness and numbness noted. 4/5 muscle strength on the right side. DTR 2+ and equal on both sides. No Babinski sign. SKIN: Warm and dry without any rash. - Assessment and Plan (1) Beebe's esophagus Current Visit: No Status: Chronic Assessment and Plan: monitor, continue PPI. (2) GAVE (gastric antral vascular ectasia) Current Visit: No Status: Chronic Assessment and Plan: Monitoring, continue PPI. (3) Hypertension Current Visit: No Status: Chronic Assessment and Plan: Continue current medications (4) CKD (chronic kidney disease) Current Visit: No Status: Acute Assessment and Plan: Appears to be stable at this time continue to monitor and avoid nephrotoxins (5) Facial paralysis/[place] palsy Current Visit: Yes Status: Acute Assessment and Plan: 67-year-old gentleman presented with right-sided facial weakness, numbness, right neck pain, and a right lower extremity weakness. He has been treated at outside hospital as [place] palsy with acyclovir and prednisone without relief of symptoms. Later, he developed right facial pain, right leg pain, and progressive right-sided weakness. MRI brain at outside hospital was reportedly normal. On physical exam, patient does have profound right-sided peripheral facial palsy, right-sided facial numbness, swelling parotid gland and the possible lymph adenopathy on the right neck. His muscle strength on the right side is slightly weaker than the left side, DTR is brisk, equal bilaterally. Babinski was negative. - Mumps was suspected, however, and amylase level was low. Pending mumps IgG and IgM. - Patient reported been treated with acyclovir and prednisone, Dave Campos syndrome was less likely. Pending HSV IgM and IgG. - In combination with right facial pain, polyradiculopathy was suspected. Right sided weakness with brisk DTR, spinal myelopathy was suspected. Pending MRI brain, cervical and thoracic spine. - Neuro following , appreciated help. 07/23 Neurology has been consulted and appreciate recommendations-recommending Tegretol 200 mg once a day along with prednisone taper over one week Initially mumps was suspected mumps IgG positive pending IgM MRI of brain 1. No acute infarct or acute intracranial process identified. 2. Mild chronic small vessel ischemic changes. C-spine MRI IMPRESSION: 1. Broad 3 mm right paracentral disc protrusion C5-6 resulting in severe right neural foraminal narrowing and mild spinal canal stenosis. 2. Mild spinal canal stenosis and [id number] bilateral neural foraminal narrowing at C6-7 secondary to a disc bulge and uncovertebral overgrowth. 3. Mild left neural foraminal narrowing at C4-5 secondary to a disc bulge lateralizing to the left. 4. Disc bulge and facet arthropathy at C3-4 without significant spinal canal stenosis or neural foraminal narrowing. MRI T-spine IMPRESSION: 1. No acute abnormality identified of the unenhanced thoracic spine. 2. Mild spinal canal stenosis at T10-T11 with minimal spinal canal stenosis at T3-T4, T7-T8 and T8-T9. 3. No evidence of spondylolisthesis. 07/24 Mumps initially suspected-mumps IgG was positive IgM elevated at 0.80 borderline level of IgM antibody to mumps virus. Repeat testing in 10-14 days Evaluated by neurology recommending Tegretol 200 mg once a day along with prednisone taper over one week Orthospine consulted (6) Facial neuralgia Current Visit: Yes Status: Acute Assessment and Plan: Facial pain is within trigeminal dermatome. (7) DVT prophylaxis Current Visit: Yes Status: Acute Assessment and Plan: Heparin sq. (8) Right sided weakness Current Visit: Yes Status: Acute Assessment and Plan: MRI cervical spine showed both radiculopathy and myelopathy. Neuro following, appreciate help. Orthospine consulted and appreciate recommendation (9) Hyperglycemia Current Visit: Yes Status: Acute Assessment and Plan: Secondary to steroid use blood glucose up to 400 today. Increase basal insulin to 100 units Levemir twice a day the patient takes at home as well as high sliding scale and prandial insulin 10 units Glucose is slowly trending down-anionic gap is 10 2 Glucose is improving we will continue with basal insulin 100 units twice a day as well as a prandial insulin of 36 units. Stop sliding scale Continue to monitor (10) Hyponatremia Current Visit: Yes Status: Acute Assessment and Plan: Secondary to hyperglycemia we will give IV fluids and monitor chemistry closely Lower glucose 07/24 Improving continue to decrease glucose (11) Hyperkalemia Current Visit: Yes Status: Acute Assessment and Plan: Secondary to hyperglycemia we will give IV fluids correct glucose and monitor closely 07/24 Resolved continue to monitor (12) Mumps Current Visit: Yes Status: Suspected Assessment and Plan: 1 suspected mumps IgG she was positive IgM borderline level at 0.8 0 repeat testing in 10-14 days continue with droplet precautions No fever no upper respiratory no lymph node swelling -he does have trigeminal nerve pain to right side of face and right facial droop - Time Spent with Patient Total time spent is greater than 50% in coordination of care (as documented) at patient's floor/unit and/or counseling patient: Internal Medicine: Result - Labs CBC & Chem 7: 07/23/18 07:06 07/24/18 12:08 Labs: BMP 07/23/18 07/24/18 19:58 12:08 Sodium 134 L 133 L Potassium 4.3 4.8 Chloride 103 102 Carbon Dioxide 25 22 L BUN 30 H 34 H Creatinine 1.28 1.16 Glucose 253 H 382 H Calcium 9.0 9.1 Consult Discharge Plan - Plan Referrals: Flaquito Shaw [Partnered Physician] - 08/20/18 1:35 pm (1) Beebe's esophagus Qualifiers: Beebe's esophagus type: with dysplasia of unspecified degree Qualified Cod e(s): K22.719 - Beebe's esophagus with dysplasia, unspecified; K22.71 - Beebe's esophagus with dysplasia (3) Hypertension Qualifiers: Hypertension type: essential hypertension Qualified Code(s): I10 - Essential (primary) hypertension (4) CKD (chronic kidney disease) Qualifiers: Chronic kidney disease stage: stage 2 (mild) Qualified Code(s): N18.2 - Chronic kidney disease, stage 2 (mild) (12) Mumps Qualifiers: Mumps complication type: without complication Qualified Code(s): B26.9 - Mumps without complication
[2018-07-24] MEDS: traZODone 50 MG TABLET PO SCH (21:45)
[2018-07-25] MEDS: 0.9 % Sodium Chloride 1,000 ML IVC SCH (03:31)
[2018-07-25 04:10] LABS: Immature Granulocytes % 0.4 % (0-4)
[2018-07-25 04:13] LABS: Eosinophils % 0.1 %; Hematocrit 36.7 % (37.5-50.1); Hemoglobin 11.9 g/dL (12.9-16.9); Immature Platelets 5.4 % (1.1-6.1); Lymphocytes # 1.1 K/mcL (0.6-4.6); Lymphocytes % 14.9 %; Mean Corpuscular HGB Conc 32.4 g/dL (31.6-35.5); Mean Corpuscular Hemoglobin 28.4 pg (28.0-33.3); Mean Corpuscular Volume 87.6 fL (83.0-100.0); Monocytes # 0.4 K/mcL (0.0-1.3); Neutrophils # 5.9 K/mcL (1.6-8.9); Red Blood Count 4.19 M/mcL (4.19-5.50); Red Cell Distribution Width 18.3 % (11.5-14.5); Segmented Neutrophils % 79.6 %
[2018-07-25 04:24] LABS: BUN/Creatinine Ratio 27 (6-26); Blood Urea Nitrogen 35 mg/dL (8-23); Calcium 9.4 mg/dL (8.6-10.3); Carbon Dioxide 25 mEq/L (23-29); Chloride 102 mEq/L (98-107); Glucose 386 mg/dL (70-105); Osmolality,Calculated 302 (280-300); Potassium 4.3 mEq/L (3.5-5.1); Sodium 134 mEq/L (136-145); eGFR For Non-African Americans 54 (> 60)
[2018-07-25 04:54] LABS: Platelet Count 97 K/mcL (140-400)
[2018-07-25 04:56] LABS: Platelet Estimate Decreased (Normal)
[2018-07-25 04:57] LABS: Anisocytosis 1+ (Not Present)
[2018-07-25] MEDS: *HR* HYDROcodone/Acet 5/325 mg TABLET PO PRN (05:43)
[2018-07-25] MEDS: Aspirin Enteric Coated 81 MG Tablet PO SCH (08:07)
[2018-07-25] MEDS: Gabapentin 300 MG CAPSULE PO SCH (08:08)
[2018-07-25] MEDS: Metoprolol 100 MG TABLET PO SCH (08:08)
[2018-07-25] MEDS: predniSONE 20 MG TABLET PO SCH (08:08)
[2018-07-25] MEDS: carBAMazepine 200 MG TABLET PO SCH (08:09)
[2018-07-25] MEDS: Lisinopril 20 MG TABLET PO SCH (08:09)
[2018-07-25] MEDS: Insulin DETEMIR 100 UNIT/ML X5UNITS SQ SCH (08:10)
[2018-07-25] MEDS: Insulin LISPRO 300 UNITS/3 ML VIAL SQ SCH (08:11)
--- NOTE | 2018-07-25 08:34 | Spinal Consult Note ---
Date of Encounter: 07/25/18 Time of Encounter: 08:32 Assessment and Plan (1) Facial paralysis/[place] palsy Current Visit: Yes Status: Acute On exam the patient is comfortable in bed in no acute distress. He has appropriate speech and mentation. Afebrile vital signs stable. Has a right- sided facial droop with some ptosis. He fires all upper extremity and lower extremity motor groups with good strength. He has a negative Leopoldo sign. Has a negative inverted radial reflex. He has some hyperreflexia in all 4 extremities. His hips move symmetrically. He has no clonus. MRI of the cervical spine reveals multilevel degenerative changes. There is severe foraminal stenosis on the right at C5-6. 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 He also denies extremity radicular pains. I do not believe his cervical stenosis is a major cause of his symptomatology complex. He can follow-up with me in the spine Center in 2 months to evaluate his clinical progress. I would only suggest that physical therapy for mobilization and strengthening on an outpatient basis. History of Present Illness Chief complaint: Right sided facial droop, resolving right leg weakness HPI: Mr. Kulkarni is a 67 year old male Mr. Kulkarni is a 67 year old male with a PMH of prior tobacco abuse, DM, HLD, HTN, COPD, GERD. Neurologist in consult with concerns for right facial pain, disequilibrium, unable to close his right eye, Cabrera's palsy with right facial droop, dysphasia and new right lower extremity weakness. The patient reports that 10 days ago he was diagnosed with Cabrera's palsy at [facility]. He underwent an MRI at that time which did not reveal a stroke. He subsequently was treated with acyclovir, Percocet and prednisone and discharged home. He has finished his course of steroids and reports that the right facial droop has not gotten any better. The patient notes that instead he is having an increase in pain behind his right jaw and on his right restorationism. He also notes mild right lip swelling over the past few days. Additionally, he notes he is having some right leg weakness and reports that his right leg gave out on him while walking Saturday. He denies any dizziness but does note some lightheadedness with change in position and activity. Additionally, in regards to his right-sided facial pain he describes this as radiating from his jaw up to his restorationism and states that it is shooting and sharp in nature and rated 6/10. He does note that he had a recent upper respiratory infection prior to his onset of symptoms. Otherwise, he denies any visual changes, neck stiffness, unilateral paresthesias, hemiparesis or hemiplegia. He received a chest x-ray in the ED which did not show any acute pulmonary findings. Additionally, CT of the head was negative for acute intracranial abnormality. He does have right facial droop and is unable to fully close his right eye. He has been evaluated by neurology who has suggested that the etiology of Cabrera's palsy is a viral but has suggested a Lyme disease workup. Due to some concerns on MRI of the cervical spine we are asked to see to rule out cervical stenosis as a cause for his symptomatology and weakness. He denies any bowel bladder symptomatology. Past Med Surg Social Fam HX - Past Medical History Medical history: COPD, diabetes, GERD, hyperlipidemia, hypertension, other (Beebe's esophagus, GAVE syndrome, pancreatitis) Additional medical history: barretts esophagus. anemia. erectile dysfunction. gastric antral vascular ectasia (GAVE syndrome) Psychiatric history: no psych history - Past Surgical History Surgical History: cholecystectomy, other Additional surgical history: right hand operation. pancreatic stent - Social History Smoking Status: Former smoker Smokeless Tobacco Status: No Alcohol use: none, heavy Drug use: none - Family History Mother Living Status: Hx Family Cardiac Disorders: Yes (CAD) Brother Living Status: Hx Family Respiratory Disorders: Yes (condition unknown to brother) Hx Family GI Disorders: Yes (GI bleed) Father Hx Family Cardiac Disorders: Yes (Patient believes father had heart failure) Medications and Allergies Albuterol Sulfate [Albuterol Inhaler] 2 puff IH Q4H PRN 01/01/18 [History] Allopurinol [Zyloprim] 300 mg PO DAILY 01/01/18 [History] Insulin ASPART [Novolog Flexpen] 36 unit SQ TID 01/01/18 [History] Insulin Glargine [Lantus] 100 unit SQ BID 01/01/18 [History] Lisinopril [Zestril] 20 mg PO DAILY 01/01/18 [History] Rosuvastatin Calcium [Crestor] 20 mg PO DAILY 01/01/18 [History] Sertraline [Zoloft] 200 mg PO DAILY 01/01/18 [History] Spironolactone [Aldactone] 12.5 mg PO DAILY 01/01/18 [History] Trazodone HCl 100 mg PO HS 01/01/18 [History] Pantoprazole Sodium [Protonix] 40 mg PO DAILY #15 tablet. 01/05/18 [Rx] Aspirin [Adult Aspirin] 81 mg PO DAILY 01/29/18 [History] Metoprolol [Lopressor] 75 mg PO BID 01/29/18 [History] Gabapentin [Neurontin] 600 mg PO BID 07/23/18 [History] Sucralfate [Carafate] 1 g PO TIDWM 07/23/18 [History] Allergy/AdvReac Type Severity Reaction Status Date / Time Penicillins Allergy Swelling Verified 01/29/18 11:40 of Lip/Tongue/Throat atorvastatin AdvReac Cough Verified 01/29/18 11:40 ibuprofen AdvReac Itching Verified 01/29/18 11:40 Results - Labs Result Diagrams: 07/25/18 03:16 07/25/18 03:16 Labs: Abnormal lab results Hgb 11.9 g/dL (12.9-16.9) L 07/25/18 03:16 Hct 36.7 % (37.5-50.1) L 07/25/18 03:16 RDW 18.3 % (11.5-14.5) H 07/25/18 03:16 Plt Count 97 K/mcL (140-400) L 07/25/18 03:16 Platelet Estimate Decreased (Normal) L 07/25/18 03:16 Anisocytosis 1+ (Not Present) A 07/25/18 03:16 ESR 26 mm/hr (0-10) H 07/22/18 04:47 Sodium 134 mEq/L (136-145) L 07/25/18 03:16 BUN 35 mg/dL (8-23) H 07/25/18 03:16 Creatinine 1.32 mg/dL (0.70-1.30) H 07/25/18 03:16 Est GFR (Non-Af Amer) 54 (> 60) L 07/25/18 03:16 BUN/Creatinine Ratio 27 (6-26) H 07/25/18 03:16 Glucose 386 mg/dL (70-105) H 07/25/18 03:16 POC Glucose 299 mg/dL (70-99) H 07/24/18 20:36 Hemoglobin A1c 7.6 % (-5.6) H 07/22/18 04:47 Calculated Osmolality 302 (280-300) H 07/25/18 03:16 Triglycerides 346 mg/dL (< 150) H 07/22/18 04:47 VLDL Cholesterol, Calc 69 mg/dL (< 31) H 07/22/18 04:47 HDL Cholesterol 24 mg/dL (40-59) L 07/22/18 04:47 Amylase 23 Units/L (29-103) L 07/22/18 09:33 Mumps Virus IgM Ab 0.80 IV (<=0.79) H 07/22/18 09:33 H & H 07/25/18 Range/Units 03:16 Hgb 11.9 L (12.9-16.9) g/dL Hct 36.7 L (37.5-50.1) % All other labs normal. Consult Discharge Plan - Plan Referrals: Flaquito Shaw [Partnered Physician] - 08/20/18 1:35 pm
--- NOTE | 2018-07-25 09:24 | Discharge Summary ---
- NOTES TO OUTPATIENT PROVIDER Notes to Outpatient Provider: Will require repeat mumps virus IgM-in 10 days- monitor chemistry had NELLA and elevation of glucose-hyponatremia. Also will require follow-up with orthopedic spine-Dr. Clemons Orders not resulted at time of discharge: Pending orders 07/22/18 09:33 Herpes Simplex, IGG Stat Herpes Simplex, IgM Stat Date of Encounter: 07/25/18 Time of Encounter: 09:14 - Discharge Diagnosis (1) Beebe's esophagus Priority: Secondary Status: Chronic Qualifiers: Beebe's esophagus type: with dysplasia of unspecified degree Qualified Code(s): K22.719 - Beebe's esophagus with dysplasia, unspecified; K22.71 - Beebe's esophagus with dysplasia (2) GAVE (gastric antral vascular ectasia) Priority: Secondary Status: Chronic (3) Hypertension Priority: Secondary Status: Chronic Qualifiers: Hypertension type: essential hypertension Qualified Code(s): I10 - Essential (primary) hypertension (4) CKD (chronic kidney disease) Priority: Primary Status: Acute Qualifiers: Chronic kidney disease stage: stage 2 (mild) Qualified Code(s): N18.2 - Chronic kidney disease, stage 2 (mild) (5) Facial paralysis/[place] palsy Priority: Primary Status: Acute (6) Facial neuralgia Priority: Secondary Status: Acute (7) Right sided weakness Priority: Primary Status: Acute (8) Hyperglycemia Priority: Secondary Status: Acute (9) Hyponatremia Priority: Secondary Status: Acute (10) Hyperkalemia Priority: Secondary Status: Acute (11) Mumps Priority: Secondary Status: Suspected Qualifiers: Mumps complication type: without complication Qualified Code(s): B26.9 - Mumps without complication Hospital course: Mr. Kulkarni is a 67 year old male past medical history tobacco abuse diabetes hyperlipidemia hypertension COPD GERD pancreatitis patient presented to [facility] ED after experiencing cold symptoms in approximately 10 days prior to presentation he noticed some right-sided facial drooping and weakness even experienced paralysis of his right leg and a little ability to elevate his right thigh were completely close his right eye.. He did present to clinic [facility] with these complaints and was diagnosed with Cabrera's Parsley he was treated with acyclovir prednisone and Percocet and that symptoms did not improve. He also has been experiencing right leg weakness and that he experienced a fall. He has been experiencing right-sided facial pain. Head CT with no acute intracranial a bnormality no acute cardiopulmonary changes on his chest x-ray today was consulted recommending continued prednisone taper over a week as well as Tegretol he will require follow-up after discharge. MRI of thoracic and cervical spine completed and did reveal mild to moderate bilateral neural foraminal narrowing of C6-7 with a disc bulge. Patient was evaluated by orthopedics-no surgical intervention at this time -Advised follow-up as outpatient. During admission patient did have hyperglycemia his insulin was adjusted and blood glucose improved. He also had hyponatremia hyperkalemia secondary to elevated blood glucose these all normalized after receiving IV fluids and insulin. Lab work updated reveal positive mumps virus IgG as well as monthly breast IgM recommending repeat of IgM and 10 days. Also HSV 1 and 2 IgG was elevated patient denies any history of herpes and no herpetic lesions noted either in ear or mouth. Advised patient to follow-up with neurology as well as primary care provider. He will have lab work drawn in 10 days check chemistry as well as mumps antibody. He will also follow up with orthopedic surgery. Advised patient to wear mask until verified by PCP mumps antibody negative. Patient verbalized understanding he will be given a prescription for Tegretol prednisone taper as well as [place]. Or she report was reviewed. Decreased gabapentin down to 600 twice a day he was given prescription for 600 mg gabapentin. Currently he is hemodynamically stable and is ready for discharge. - Time Spent with Patient Total time spent providing and/or coordinating discharge services: - Discharge Medications Prescriptions: HYDROcodone/Acet 5/325 mg [[place] 5-325 mg] 1 tab PO Q6HR PRN 5 Days #20 tablet PRN Reason: Moderate Pain carBAMazepine [Tegretol] 200 mg PO DAILY #5 tablet Gabapentin [Neurontin] 600 mg PO BID #28 capsule predniSONE [PredniSONE] 10 mg PO DAILY #11 tablet Home Medications: Albuterol Sulfate [Albuterol Inhaler] 2 puff IH Q4H PRN 01/01/18 [History] Allopurinol [Zyloprim] 300 mg PO DAILY 01/01/18 [History] Insulin ASPART [Novolog Flexpen] 36 unit SQ TID 01/01/18 [History] Insulin Glargine [Lantus] 100 unit SQ BID 01/01/18 [History] Lisinopril [Zestril] 20 mg PO DAILY 01/01/18 [History] Rosuvastatin Calcium [Crestor] 20 mg PO DAILY 01/01/18 [History] Sertraline [Zoloft] 200 mg PO DAILY 01/01/18 [History] Spironolactone [Aldactone] 12.5 mg PO DAILY 01/01/18 [History] Trazodone HCl 100 mg PO HS 01/01/18 [History] Pantoprazole Sodium [Protonix] 40 mg PO DAILY #15 tablet. 01/05/18 [Rx] Aspirin [Adult Aspirin] 81 mg PO DAILY 01/29/18 [History] Metoprolol [Lopressor] 75 mg PO BID 01/29/18 [History] Gabapentin [Neurontin] 600 mg PO BID 07/23/18 [History] Sucralfate [Carafate] 1 g PO TIDWM 07/23/18 [History] Gabapentin [Neurontin] 600 mg PO BID #28 capsule 07/25/18 [Rx] HYDROcodone/Acet 5/325 mg [[place] 5-325 mg] 1 tab PO Q6HR PRN 5 Days #20 tablet 07/25/18 [Rx] carBAMazepine [Tegretol] 200 mg PO DAILY #5 tablet 07/25/18 [Rx] predniSONE [PredniSONE] 10 mg PO DAILY #11 tablet 07/25/18 [Rx] Allergies/Adverse Reactions: Allergy/AdvReac Type Severity Reaction Status Date / Time Penicillins Allergy Swelling Verified 01/29/18 11:40 of Lip/Tongue/Throat atorvastatin AdvReac Cough Verified 01/29/18 11:40 ibuprofen AdvReac Itching Verified 01/29/18 11:40 Date of admission: 07/22/18 15:15 Primary care physician: PCP NONE Consults: 07/21/18 18:26 Consult to Neurology [CONS] Stat Consulting Provider: [facility] Reason for Consult: Neuro deficits- dysphagia, dysequilibrium, asymmetrical soft palate, right leg weakness. Call Completed: Yes 07/21/18 23:40 Consult to Occupational Therapy [CONS] Routine Comment: Evaluate, develop and implement POC Reason for Consult: [place] palsy Does patient have active BEDREST order?: No Is patient medically & hemodynamically stable?: Yes Consult to Physical Therapy [CONS] Routine Comment: Evaluate, develop and implement POC Reason for Consult: cabrera's palsy Does patient have active BEDREST order?: No Is patient medically & hemodynamically stable?: Yes 07/24/18 14:43 Consult to Orthopedic Surgery [CONS] Routine Consulting Provider: [facility]oped[facility] Reason for Consult: [place]- ortho spine Time Notified: 14:45 Call Completed: Yes Discharging clinician: Emy Keita Anticipated date of discharge: 07/25/18 - Constitutional Vitals: Temp Pulse Resp BP Pulse Ox 97.5 F L 74 14 189/92 97 07/25/18 07:41 07/25/18 07:41 07/25/18 07:41 07/25/18 07:41 07/25/18 07:41 General appearance: Present: A&O X 3, pleasant Exam: PHYSICAL EXAMINATION: GENERAL APPEARANCE: The patient is alert, oriented and in no acute distress. HEENT: Head is normocephalic. The sinuses are nontender. Pupils are equal and reactive. The nares are patent. Oropharynx clear without lesions. NECK: Supple without lymphadenopathy. HEART: Regular rate and rhythm. LUNGS: No crackles or wheezes are heard. ABDOMEN: Soft, nontender, nondistended with good bowel sounds heard. Inguinal area is normal. EXTREMITIES: Without cyanosis, clubbing or edema. NEUROLOGICAL: right facial weakness and numbness noted. 4/5 muscle strength on the right side. DTR 2+ and equal on both sides. No Babinski sign. SKIN: Warm and dry without any rash. - Patient Status Disposition: Home, Self-Care Condition: Fair Functional capacity at discharge: independent ambulation - Discharge Instructions Follow Up With: Danish Clemons Jr, MD [Partnered Physician] - (Follow up appointment has been requested. Office will call with date and time of appointment. ) Flaquito Shaw [Partnered Physician] - 08/01/18 1:55 pm - Diet and Activity Activity: increase activity as tolerated Diet: advance to your usual diet
[2018-07-25] MEDS ORDERED: Spironolactone 25 MG TABLET PO SCH (10:29)
[2018-07-25 11:22] VITALS: BP 163/82
[2018-07-26] MEDS ORDERED: predniSONE 20 MG TABLET PO SCH (09:00)
== END 2018-07-25 11:57 | disposition home or self-care (01) | DRG 74 ==
LOC: EMEROOARM 14:40 → 3BNU 14:40
PROVIDERS: ADMIT Internal Medicine; ATTEND Internal Medicine